=== PATIENT | female | born 1955 | race Caucasian/White ===

== ENCOUNTER → 2019-05-30 11:11 | Outpatient (BNVA) | payer MEDICARE, OTHER, SELFPAY | PROVIDERS: Family Provider Nurse Practitioner; PCP Nurse Practitioner; Visit Provider Nurse Practitioner | DX: E04.9 Nontoxic goiter, unspecified (principal); E55.9 Vitamin D deficiency, unspecified | CPT/HCPCS: 82306; 84443 ==

== ENCOUNTER → 2019-10-25 14:04 | Outpatient (BNVA) | payer MEDICARE, OTHER, SELFPAY | PROVIDERS: Family Provider Nurse Practitioner; PCP Nurse Practitioner; Visit Provider Nurse Practitioner | DX: Z12.31 Encounter for screening mammogram for malignant neoplasm of breast (principal); E03.8 Other specified hypothyroidism; I48.91 Unspecified atrial fibrillation | CPT/HCPCS: 80053; 80061; 84443 ==

== ENCOUNTER → 2019-10-26 10:51 | Outpatient (BNVA) | payer MEDICARE, OTHER, SELFPAY | PROVIDERS: Family Provider Nurse Practitioner; PCP Nurse Practitioner; Visit Provider Nurse Practitioner | DX: I48.91 Unspecified atrial fibrillation (principal); I70.90 Unspecified atherosclerosis | CPT/HCPCS: 71046 ==

== ENCOUNTER → 2019-11-02 15:10 | Outpatient (BNVA) | payer MEDICARE, OTHER, SELFPAY | PROVIDERS: Family Provider Nurse Practitioner; PCP Nurse Practitioner; Visit Provider Nurse Practitioner | DX: I48.91 Unspecified atrial fibrillation (principal); R73.9 Hyperglycemia, unspecified | CPT/HCPCS: 83036 ==

== ENCOUNTER 2019-11-28 09:23 | Outpatient (CLI) | payer MEDICARE, OTHER, SELFPAY ==
--- NOTE | 2019-11-28 09:30 | USCV_ITS ---
Graciela Hameed Age: 64 Gender: F : 1955 Exam Date: 11/28/2019 09:45 Ordering Phys: Nicol Taveras Technologist: Becky Espinoza [place]am [place] [facility] [place]: PALPATION BP: 100 / 82 HR: 93 Rhythm: Sinus Technical Quality: Adequate MEASUREMENTS (Male / Female) Normal Values 2D ECHO LV Diastolic Diameter PLAX 4.1 cm 4.2 - 5.9 / 3.9 - 5.3 cm LV Systolic Diameter PLAX 3.4 cm LV Chamber Size 3.0 cm IVS Diastolic Thickness 1.0 cm 0.6 - 1.0 / 0.6 - 0.9 cm IVS Systolic Thickness 1.5 cm LVPW Diastolic Thickness 1.4 cm 0.6 - 1.0 / 0.6 - 0.9 cm LVPW Systolic Thickness 1.8 cm RV Chamber Size 2.2 cm LVOT Diameter 2.0 cm LV Ejection Fraction 2D Teich 34.8 % LV Ejection Fraction MOD 2C 80.5 % LV Ejection Fraction 2C AL 82.1 % LA Diameter 4.0 cm LA Width 2.8 cm LA Height 4.8 cm RA Width 3.3 cm RA Height 3.4 cm Aorta at Sinotubular Diameter 3.1 cm M-MODE LV Diastolic Diameter MM 3.5 cm 4.2 - 5.9 / 3.9 - 5.3 cm LV Systolic Diameter MM 2.4 cm LV Ejection Fraction MM Teich 62.5 % IVS Diastolic Thickness MM 1.0 cm 0.6 - 1.0 / 0.6 - 0.9 cm IVS Systolic Thickness MM 1.4 cm LVPW Diastolic Thickness MM 1.3 cm 0.6 - 1.0 / 0.6 - 0.9 cm LVPW Systolic Thickness MM 1.8 cm RV Diastolic Diameter MM 1.5 cm Aortic Annulus Diameter 3.5 cm LA Ao Ratio MM 1.3 MV E Point Septal Separation 0.8 cm DOPPLER AV Peak Velocity 126.0 cm/s LVOT Peak Velocity 68.0 cm/s AV Area Cont Eq vti 2.4 cm squared AV Area Cont Eq pk 1.8 cm squared MV Area PHT 4.4 cm squared MV E' Velocity 80.5 cm/s Mitral E to MV E' Ratio 13.9 Mitral E to LV E' Lateral Ratio 13.9 Mitral E to LV E' Septal Ratio 13.9 TR Peak Velocity 121.8 cm/s TR Peak Gradient 5.9 mmHg TR Mean Velocity 74.0 cm/s TR Mean Gradient 2.7 mmHg TR Velocity Time Integral 27.4 cm TV Peak E Velocity 72.0 cm/s Right Atrial Pressure 3.0 mmHg Pulmonary Artery Systolic Pressu 8.9 mmHg PV Peak Velocity 59.3 cm/s RV Acceleration Time 0.3 s RV Ejection Time 0.3 s RV AcT/ET 0.9 FINDINGS Left Ventricle Normal left ventricular cavity size. Normal left ventricular systolic function. Left ventricular ejection fraction is estimated at 55 %. No regional wall motion abnormalities. In the presence of atrial fibrillation diastolic function cannot be assessed accurately. Right Ventricle The right ventricle is normal in size and function. Right Atrium The right atrium is normal in size. Left Atrium The left atrium is normal in size. Mitral Valve Structurally normal mitral valve without significant stenosis or prolapse. There is no mitral regurgitation. Aortic Valve Structurally normal aortic valve without significant sclerosis or stenosis. There is no aortic regurgitation. Tricuspid Valve Structurally normal tricuspid valve without significant stenosis or regurgitation. Pulmonary artery systolic pressure is normal. Pulmonic Valve Structurally normal pulmonic valve without significant stenosis. There is no pulmonic regurgitation. Pericardium Normal pericardium without effusion. Aorta Normal ascending aorta dimension. CONCLUSIONS 1-Normal left ventricular cavity size. Normal left ventricular systolic function. Left ventricular ejection fraction is estimated at 55 %. No regional wall motion abnormalities. In the presence of atrial fibrillation diastolic function cannot be assessed accurately. 2-There is no pericardial effusion. 3-No significant valve abnormalities. 4-Pulmonary artery systolic pressure is within normal limits. 5-Right atrial pressure is around 5 mm of mercury. 6-There are no prior echocardiogram studies to compare. Geneva Wayne MD (Electronically Signed) Final Date: 28 November 2019 21:12 S
== END 2019-11-28 09:24 | disposition home or self-care (01) ==
LOC: US 09:25
PROVIDERS: PCP Nurse Practitioner; Visit Provider Nurse Practitioner
DX: R00.2 Palpitations (principal)
CPT/HCPCS: 93306

== ENCOUNTER 2019-12-12 14:59 | Outpatient (CLI) | payer MEDICARE, OTHER, SELFPAY ==
--- NOTE | 2019-12-12 15:14 | MM_ITS ---
WS: [id number] BILATERAL SCREENING DIGITAL MAMMOGRAM WITH CAD HISTORY: hx right breast mass COMPARISON: 09/16/2018 and 08/25/2018 Bilateral CC and MLO views submitted. Computer aided detection analyzed. Breast composition: The breasts are heterogeneously dense, which may obscure small masses. No suspici ous masses, microcalcifications or architectural distortion. RIGHT breast nodules and LEFT breast keenan cifications are all stable. No progression of asymmetries. MM/[id number] IMPRESSION: BI-RADS: 2-Benign FOLLOW UP: 1 Year Follow-up
== END 2019-12-12 15:00 | disposition home or self-care (01) ==
LOC: RADSHAW 15:07
PROVIDERS: PCP Nurse Practitioner; Visit Provider Nurse Practitioner
DX: Z85.3 Personal history of malignant neoplasm of breast (principal)
CPT/HCPCS: 77066

== ENCOUNTER → 2020-01-01 15:33 | Outpatient (BNVA) | payer MEDICARE, OTHER, SELFPAY | PROVIDERS: PCP Nurse Practitioner; Visit Provider Internal Medicine Cardiovascular Disease | DX: I48.91 Unspecified atrial fibrillation (principal); E78.2 Mixed hyperlipidemia; E03.8 Other specified hypothyroidism; M19.90 Unspecified osteoarthritis, unspecified site; G47.10 Hypersomnia, unspecified | CPT/HCPCS: 80048; 80162; 83735; 85025 ==

== ENCOUNTER 2020-02-08 11:00 | Outpatient (CLI) | payer MEDICARE, SELFPAY | END 2020-02-08 11:01 | disposition home or self-care (01) | LOC: SLEEP 02-13 10:31 | PROVIDERS: PCP Nurse Practitioner; Visit Provider Internal Medicine Cardiovascular Disease | DX: G47.10 Hypersomnia, unspecified (principal) | CPT/HCPCS: 94762 ==

== ENCOUNTER → 2020-03-11 15:33 | Outpatient (BNVA) | payer MEDICARE, SELFPAY | PROVIDERS: PCP Nurse Practitioner; Visit Provider Nurse Practitioner | DX: E03.8 Other specified hypothyroidism (principal); E78.2 Mixed hyperlipidemia | CPT/HCPCS: 80053; 80061; 84443 ==

== ENCOUNTER → 2020-03-19 11:54 | Outpatient (BNVA) | payer MEDICARE, SELFPAY | PROVIDERS: PCP Nurse Practitioner; Visit Provider Nurse Practitioner | DX: R73.9 Hyperglycemia, unspecified (principal) | CPT/HCPCS: 83036 ==

== ENCOUNTER → 2020-06-24 15:05 | Outpatient (BNVA) | payer MEDICARE, SELFPAY | PROVIDERS: PCP Nurse Practitioner; Visit Provider Nurse Practitioner | DX: E11.65 Type 2 diabetes mellitus with hyperglycemia (principal); E78.2 Mixed hyperlipidemia; E03.8 Other specified hypothyroidism | CPT/HCPCS: 80053; 80061; 83036; 84443; 85025 ==

== ENCOUNTER → 2020-12-16 14:36 | Outpatient (BNVA) | payer MEDICARE, SELFPAY | PROVIDERS: PCP Nurse Practitioner; Visit Provider Nurse Practitioner | DX: E03.8 Other specified hypothyroidism (principal); E11.65 Type 2 diabetes mellitus with hyperglycemia; E78.2 Mixed hyperlipidemia; I48.91 Unspecified atrial fibrillation | CPT/HCPCS: 80053; 80061; 80162; 83036; 84443; 85025 ==

== ENCOUNTER 2021-01-30 11:24 | Outpatient (CLI) | payer MEDICARE, SELFPAY ==
--- NOTE | 2021-01-30 11:34 | MM_ITS ---
WS: [id number] BILATERAL DIGITAL SCREENING MAMMOGRAPHY WITH CAD CLINICAL INFORMATION: SCREENING HISTORY: Screening mammogram. No current complaints. COMPARISON: December 12, 2019 TECHNIQUE: Bilateral CC and MLO views. FINDINGS: The breasts are composed of heterogeneous fibroglandular density tissue, which can limit the detectio n of small underlying mass lesions. Dystrophic calcifications left breast. A few stable punctate calc ifications right breast. Ovoid nodules right breast are similar in appearance. No suspicious mass, as ymmetry, calcifications, or architectural distortion. No evidence of malignancy. MM/[id number] IMPRESSION: BI-RADS: 2-Benign FOLLOW UP: 1 Year Follow-up Recommend return to annual screening mammography.
== END 2021-01-30 11:25 | disposition home or self-care (01) ==
PROVIDERS: PCP Nurse Practitioner; Visit Provider Nurse Practitioner
DX: Z12.31 Encounter for screening mammogram for malignant neoplasm of breast (principal)
CPT/HCPCS: 77067

== ENCOUNTER → 2021-02-17 11:20 | Outpatient (BNVA) | payer MEDICARE, SELFPAY | PROVIDERS: PCP Nurse Practitioner; Visit Provider Nurse Practitioner | DX: M25.611 Stiffness of right shoulder, not elsewhere classified (principal) | CPT/HCPCS: 73030 ==

== ENCOUNTER → 2021-05-08 15:42 | Outpatient (BNVA) | payer MEDICARE, SELFPAY | PROVIDERS: PCP Nurse Practitioner; Visit Provider Nurse Practitioner Family | DX: R50.9 Fever, unspecified (principal); R05.9 Cough, unspecified; Z20.822 Contact with and (suspected) exposure to COVID-19 | CPT/HCPCS: 87635 ==

== ENCOUNTER → 2021-06-04 09:30 | Outpatient (BNVA) | payer MEDICARE, SELFPAY | PROVIDERS: PCP Nurse Practitioner; Visit Provider Nurse Practitioner | DX: E03.8 Other specified hypothyroidism (principal); E11.65 Type 2 diabetes mellitus with hyperglycemia | CPT/HCPCS: 80053; 80061; 82306; 83036; 84443 ==

== ENCOUNTER 2021-06-24 06:49 | Outpatient (CLI) | payer MEDICARE, SELFPAY ==
--- NOTE | 2021-06-24 08:30 | CT_ITS ---
WS: [id number] CT ABDOMEN PELVIS TECHNIQUE: Noncontrast CT of the abdomen and pelvis with coronal and sagittal reformatted images. CLINICAL INFORMATION: R10.9 - Unspecified abdominal pain COMPARISON: None. DLP: 1020.[address] scans at [facility] use at least one of these dose optimization techniques: automated e xposure control; mA and/or kV adjustment per patient size (includes targeted exams where dose is matc hed to clinical indication); or iterative reconstruction. FINDINGS: Mild hepatomegaly. Noncontrast liver otherwise appears normal. Noncontrast spleen is normal. Normal G E junction. Lung bases are well aerated. Adrenal glands are normal. Noncontrast pancreas appears norm al. Large calcified intraluminal gallstone measuring 2.9 cm with gallbladder wall thickening. Recomme nd further evaluation with ultrasound. No intrahepatic biliary ductal dilatation. Adrenal glands are normal. No hydronephrosis in either kidney. No obstructing renal or ureteral calcu li.Normal caliber abdominal aorta. Mild aortic calcification. Several calcified uterine fibroids. Sig moid diverticulosis. No evidence of acute diverticulitis. No high-grade small or large bowel obstruct ion. Normal appendix in the RIGHT lower quadrant. Normal caliber abdominal aorta. Mild aortic calcification. No abdominal or pelvic lymphadenopathy. No inguinal lymphadenopathy. Fat-containing umbilical hernia. S-shaped thoracolumbar scoliosis. Impression CT/CT abdomen pelvis wo con [id number] IMPRESSION: 1. Large calcified gallstone with gallbladder wall thickening. Recommend furth er evaluation with ultrasound. No intrahepatic biliary ductal dilatation. Recom mend clinical correlation for cholecystitis. 2. Mild hepatomegaly. 3. Sigmoid diverticulosis. No evidence of acute diverticulitis. 4. Lobulated uterus with multiple calcified uterine fibroids. 5. No abdominal or pelvic lymphadenopathy. 6. Fat-containing umbilical hernia. 7. Thoracolumbar scoliosis.
== END 2021-06-24 06:50 | disposition home or self-care (01) ==
LOC: RAD 06:51
PROVIDERS: Family Provider Nurse Practitioner; PCP Nurse Practitioner; Visit Provider Nurse Practitioner
DX: R10.9 Unspecified abdominal pain (principal); K80.80 Other cholelithiasis without obstruction; K57.30 Diverticulosis of large intestine without perforation or abscess without bleeding
CPT/HCPCS: 74176

== ENCOUNTER → 2021-07-01 13:41 | Outpatient (BNVA) | payer MEDICARE, SELFPAY | PROVIDERS: Family Provider Nurse Practitioner; PCP Nurse Practitioner; Referring Provider Nurse Practitioner; Visit Provider Surgery | DX: K80.20 Calculus of gallbladder without cholecystitis without obstruction (principal); R10.12 Left upper quadrant pain | CPT/HCPCS: 99204 ==

== ENCOUNTER → 2021-09-23 14:04 | Outpatient (BNVA) | payer MEDICARE, SELFPAY | PROVIDERS: Family Provider Nurse Practitioner; PCP Nurse Practitioner; Visit Provider Nurse Practitioner | DX: R05.9 Cough, unspecified (principal); J30.89 Other allergic rhinitis; M19.90 Unspecified osteoarthritis, unspecified site; J98.01 Acute bronchospasm; E03.8 Other specified hypothyroidism; E11.65 Type 2 diabetes mellitus with hyperglycemia; E78.2 Mixed hyperlipidemia; Z20.822 Contact with and (suspected) exposure to COVID-19; B00.9 Herpesviral infection, unspecified; A88.1 Epidemic vertigo | CPT/HCPCS: 80053; 85025; 87400; 87635 ==

== ENCOUNTER → 2021-10-01 14:33 | Outpatient (BNVA) | payer MEDICARE, SELFPAY | PROVIDERS: Family Provider Nurse Practitioner; PCP Nurse Practitioner; Visit Provider Internal Medicine Cardiovascular Disease | DX: I48.91 Unspecified atrial fibrillation (principal); Z79.01 Long term (current) use of anticoagulants; E03.8 Other specified hypothyroidism | CPT/HCPCS: 99214 ==

== ENCOUNTER → 2021-11-26 11:31 | Outpatient (BNVA) | payer MEDICARE, SELFPAY | PROVIDERS: Family Provider Nurse Practitioner; PCP Nurse Practitioner; Visit Provider Nurse Practitioner | DX: E11.65 Type 2 diabetes mellitus with hyperglycemia (principal); E03.8 Other specified hypothyroidism; E78.2 Mixed hyperlipidemia | CPT/HCPCS: 80053; 80061; 82306; 84443 ==

== ENCOUNTER 2022-01-06 14:32 | Outpatient (CLI) | payer MEDICARE, SELFPAY ==
--- NOTE | 2022-01-06 15:30 | XR_ITS ---
WS: [id number] DEXA (DUAL ENERGY X-RAY ABSORPTIOMETRY) Bone mineral density was performed using a Kymeta machine. HISTORY: Z78.0 - Asymptomatic menopausal state COMPARISON: None available. Lumbar spine BMD (L1-L4): 1.098 g/cm2 T score: -0.7 Z score: 0.6 Total hip BMD: Left: 0.839 g/cm2. T score: -1.3 Z score: -0.3 Right: 0.872 g/cm2. T score: -1.1 Z score: -0.1 10 year probability of a major osteoporotic fracture is 9.2%. Moderate RIGHT rotoscoliosis of the lumbar spine. XR/XR DEXA axial skeleton* [id number] IMPRESSION: OSTEOPENIA based upon the WHO classification for females.
== END 2022-01-06 14:33 | disposition home or self-care (01) ==
LOC: RAD 14:33
PROVIDERS: PCP Nurse Practitioner; Visit Provider Nurse Practitioner
DX: Z78.0 Asymptomatic menopausal state (principal); M85.80 Other specified disorders of bone density and structure, unspecified site
CPT/HCPCS: 77080

== ENCOUNTER → 2022-02-03 10:02 | Outpatient (BNVA) | payer MEDICARE, SELFPAY | PROVIDERS: PCP Nurse Practitioner; Visit Provider Nurse Practitioner Family | DX: R50.9 Fever, unspecified (principal); R09.89 Other specified symptoms and signs involving the circulatory and respiratory systems | CPT/HCPCS: 87400 ==

== ENCOUNTER → 2022-02-16 10:33 | Outpatient (BNVA) | payer MEDICARE, SELFPAY | PROVIDERS: PCP Nurse Practitioner; Visit Provider Nurse Practitioner | DX: E78.2 Mixed hyperlipidemia (principal); E03.8 Other specified hypothyroidism; E11.65 Type 2 diabetes mellitus with hyperglycemia | CPT/HCPCS: 80053; 80061; 83036; 84443 ==

== ENCOUNTER → 2022-05-08 10:30 | Outpatient (BNVA) | payer MEDICARE, SELFPAY | PROVIDERS: PCP Nurse Practitioner; Visit Provider Nurse Practitioner | DX: E11.65 Type 2 diabetes mellitus with hyperglycemia (principal); E78.2 Mixed hyperlipidemia | CPT/HCPCS: 80053; 80061; 83036; 84443 ==

== ENCOUNTER → 2022-05-29 10:50 | Outpatient (BNVA) | payer MEDICARE, SELFPAY | PROVIDERS: Family Provider Nurse Practitioner; PCP Nurse Practitioner; Visit Provider Nurse Practitioner Family | DX: I48.91 Unspecified atrial fibrillation (principal); Z79.01 Long term (current) use of anticoagulants | CPT/HCPCS: 99213 ==

== ENCOUNTER → 2022-07-30 10:46 | Outpatient (BNVA) | payer MEDICARE, SELFPAY | PROVIDERS: Family Provider Nurse Practitioner; PCP Nurse Practitioner; Visit Provider Nurse Practitioner | DX: E78.2 Mixed hyperlipidemia (principal); E11.65 Type 2 diabetes mellitus with hyperglycemia | CPT/HCPCS: 80053; 80061; 83036; 84443 ==

== ENCOUNTER → 2022-08-04 14:40 | Outpatient (BNVA) | payer MEDICARE, SELFPAY | PROVIDERS: Family Provider Nurse Practitioner; PCP Nurse Practitioner; Visit Provider Nurse Practitioner | DX: J30.89 Other allergic rhinitis (principal); G47.00 Insomnia, unspecified; J98.01 Acute bronchospasm; M81.0 Age-related osteoporosis without current pathological fracture; E03.8 Other specified hypothyroidism; E11.65 Type 2 diabetes mellitus with hyperglycemia; E78.2 Mixed hyperlipidemia; R60.9 Edema, unspecified | CPT/HCPCS: 81000; 82043 ==

== ENCOUNTER 2022-08-14 10:44 | Outpatient (CLI) | payer MEDICARE, SELFPAY ==
--- NOTE | 2022-08-14 10:51 | MM_ITS ---
WS: [id number] BILATERAL 3D TOMOSYNTHESIS DIGITAL SCREENING MAMMOGRAPHY WITH CAD CLINICAL INFORMATION: Z12.31 - Encounter for screening mammogram for malignant ... HISTORY: Screening mammogram. No current complaints. COMPARISON: 2020 TECHNIQUE: Bilateral CC and MLO views. FINDINGS: The breasts are composed of heterogeneous fibroglandular density tissue, which can limit the detectio n of small underlying mass lesions. No suspicious mass, asymmetry, calcifications, or architectural d istortion. No evidence of malignancy. Punctate and lucent centered calcifications. Dystrophic calcifi cations LEFT breast. Stable ovoid nodules RIGHT breast. MM/[place] [id number] IMPRESSION: BI-RADS: 2-Benign FOLLOW UP: 1 Year Follow-up Recommend return to annual screening mammography.
== END 2022-08-14 10:45 | disposition home or self-care (01) ==
PROVIDERS: Family Provider Nurse Practitioner; PCP Nurse Practitioner; Visit Provider Nurse Practitioner
DX: Z12.31 Encounter for screening mammogram for malignant neoplasm of breast (principal)
CPT/HCPCS: 77063; 77067

== ENCOUNTER 2022-08-18 16:27 | Emergency (ER) | payer MEDICARE, SELFPAY ==
[2022-08-18 16:37] VITALS: BP 115/58; PULSE 84; RESP 16; TEMP 36.7; O2SAT 97
--- NOTE | 2022-08-18 17:31 | W.ED.FEMALGU ---
HPI - Female Genitourinary General: Chief complaint: Urogenital-Female Stated complaint: Peeing Blood Time Seen by Provider: 08/18/22 17:30 History of Present Illness: 66-year-old female comes in today with complaints of blood in urine. Patient denies any increased pain or discomfort. Patient seen her primary care last week for normal checkup and had urine checked at that time but no abnormalities was reported to her. Patient denies fever or severe pain. Patient has a history of A-fib, and borderline diabetes mellitus. Associated symptoms: Deny headache(s) or nausea Review of Systems Const: Denies: fever(s) Card: Denies: chest pain Resp: Denies: dyspnea GI: Denies: nausea or vomiting : Reports: hematuria Musc: Denies: neck pain or back pain Skin/Breast: Denies: rash or pruritus Neuro: Denies: headache(s) PFSH ED PFSH: Medical History Acute non-seasonal allergic rhinitis Adult onset hypothyroidism Diverticulosis Osteoarthritis Surgical History History of colonoscopy 2019 History of tonsillectomy History of tubal ligation Family History Other CAD (coronary artery disease) COPD (chronic obstructive pulmonary disease) Diabetes Heart disease Denies family history of Bleeding disorder Social History Smoking and tobacco status: never smoked Second hand smoke exposure: No Smoking risk assessment/counseling performed?: No Alcohol intake: never Desire information about alcohol rehabilitation?: No Counseling given: No Substance/Drug Use: never Desire information about substance/drug rehabilitation?: No Counseling given: No Adopted: No Caregiver/support person: No Lives independently: Yes Household members: spouse Housing: House Marital status: service: No Current occupational status: disabled Do you think of yourself as: Straight/Heterosexual Current gender identity: Female Physical Exam Const: COMMON NORMALS: alert HENMT: COMMON NORMALS: atraumatic HEAD & SCALP: atraumatic Neck/C-Spine: COMMON NORMALS: full ROM Resp: COMMON NORMALS: normal respiratory effort and clear to auscultation bilaterally AUSCULTATION: clear to auscultation bilaterally Cardio: COMMON NORMALS: regular rate and regular rhythm RATE: regular rate RHYTHM: regular rhythm GI: COMMON NORMALS: Soft to palpation and non-tender PALPATION: Yes Soft to palpation : COMMON NORMALS: Yes no CVA tenderness BLADDER/KIDNEY EXAM: Yes no CVA tenderness Back/Pelvis: COMMON NORMALS: no CVA tenderness Extremity: COMMON NORMALS: full ROM Neuro: SENSORIUM/ORIENTATION: Yes alert Skin: COMMON NORMALS: turgor normal GENERAL SKIN EXAM: turgor normal Course Vital Signs: Vital signs: Vital Signs Temperature 98.1 F 08/18/22 16:37 Pulse Rate 77 08/18/22 18:22 Respiratory Rate 16 08/18/22 18:22 Blood Pressure 106/69 08/18/22 18:22 Pulse Oximetry 98 08/18/22 18:22 Oxygen Delivery Me thod Room Air 08/18/22 18:22 [facility] - Female Medical Decision Making 66-year-old female comes in today for complaints of blood in urine. Patient denies any pain or discomfort or fever. On exam abdomen soft nontender. Bowel sounds are present. No CVA tenderness is noted. Differential diagnosis includes renal calculi, urinary tract infection, adverse drug effect. Laboratory noted no significant anemia in the blood count, kidney function was well, urinalysis had a large amount of blood cells. CT of the abdomen and pelvis noted cholelithiasis, diverticulosis, uterine fibroids, constipation, breast nodule, and pericardial calcification. Reviewed incidental findings with patient with recommendations for follow-up. Discussed need for follow-up with urology due to hematuria. Suspect a cystitis causing the hematuria, we will start her on antibiotic 300 mg twice a day for the next 7 days with need for follow-up or return to the ER for worsening symptoms. Patient reported understanding and agreed to plan. Lab Data 08/18/22 17:40 08/18/22 17:40 Radiology Impressions Abdomen/Pelvis CT 08/18/22 17:32 IMPRESSION: 1. Cholelithiasis with possible minimal pericholecystic edema, consider further evaluation with an ultrasound. 2. Constipation. 3. Diverticulosis without diverticulitis. 4. Several calcified uterine fibroids suspected measuring up to 13 mm. 5. Somewhat diffuse pericardial calcification. 6. Several right inferior breast soft tissue density nodules suspected measuring up to 11 mm, dedicated nonemergent breast imaging advised. Laboratory Results WBC 11.6 10^3/uL (4.0-10.0) H 08/18/22 17:40 RBC 4.50 10^6/uL (4.1-5.3) 08/18/22 17:40 Hgb 13.8 g/dL (11.5-15.3) 08/18/22 17:40 Hct 41.8 % (37.0-47.0) 08/18/22 17:40 MCV 92.9 fl (81-99) 08/18/22 17:40 MCH 30.7 pg (28.0-34.0) 08/18/22 17:40 MCHC 33.0 g/dL (30.0-36.0) 08/18/22 17:40 RDW 11.9 % (12.1-15.1) L 08/18/22 17:40 Plt Count 217 10^3/cmm (130-400) 08/18/22 17:40 MPV 10.8 fL (7.4-10.4) H 08/18/22 17:40 Neut % (Auto) 61.7 % 08/18/22 17:40 Lymph % (Auto) 28.4 % 08/18/22 17:40 [place] % (Auto) 7.4 % 08/18/22 17:40 Eos % (Auto) 1.8 % 08/18/22 17:40 Baso % (Auto) 0.3 % 08/18/22 17:40 Neut # (Auto) 7.17 10^3/uL (1.8-7.7) 08/18/22 17:40 Lymph # (Auto) 3.3 10^3/uL (0.8-4.8) 08/18/22 17:40 [place] # (Auto) 0.9 10^3/uL (0.2-0.9) 08/18/22 17:40 Eos # (Auto) 0.2 10^3/uL (0.0-0.8) 08/18/22 17:40 Baso # (Auto) 0.0 10^3/uL (0.0-0.1) 08/18/22 17:40 Nucleated RBC % (auto) 0 % 08/18/22 17:40 Nucleated RBCs # 0.0 /100WBC 08/18/22 17:40 Sodium 138 mmol/L (136-145) 08/18/22 17:40 Potassium 3.9 mmol/L (3.5-5.1) 08/18/22 17:40 Chloride 98 mmol/L (98-107) 08/18/22 17:40 Carbon Dioxide 29 mmol/L (22-29) 08/18/22 17:40 Anion Gap 14.9 (5-19) 08/18/22 17:40 BUN 15 mg/dL (8-23) 08/18/22 17:40 Creatinine 0.8 mg/dL (0.5-0.9) 08/18/22 17:40 GFR Calculation 72.0 mL/min (90-130) L 08/18/22 17:40 Glucose 70 mg/dL (65-115) 08/18/22 17:40 Calculated Osmolality 285 mOsm/kg (285-295) 08/18/22 17:40 Calcium 9.6 mg/dL (8.5-10.5) 08/18/22 17:40 Total Bilirubin 0.6 mg/dL (0.15-1.2) 08/18/22 17:40 AST 20 U/L (0-32) 08/18/22 17:40 ALT 17 U/L (0-33) 08/18/22 17:40 Alkaline Phosphatase 57 U/L (35-105) 08/18/22 17:40 Total Protein 8.2 g/dL (6.6-8.7) 08/18/22 17:40 Albumin 4.7 g/dL (3.5-5.2) 08/18/22 17:40 Globulin 3.5 g/dL (1.3-4.6) 08/18/22 17:40 Urine Color Red (Yellow) 08/18/22 17:25 Urine Appearance Turbid (CLEAR) A 08/18/22 17:25 Urine pH 8 (5-7) H 08/18/22 17:25 Ur Specific [place] 1.015 (1.005-1.030) 08/18/22 17:25 Urine Protein 1+ (Negative) H 08/18/22 17:25 Urine Glucose (UA) Norm (Normal) 08/18/22 17:25 Urine Ketones Negative (Negative) 08/18/22 17:25 Urine Blood 3+ (Negative) H 08/18/22 17:25 Urine Nitrate Negative (Negative) 08/18/22 17:25 Urine Bilirubin Neg (Negative) 08/18/22 17:25 Prot Sulfosalicylic Acd Positive (Negative) 08/18/22 17:25 Urine Urobilinogen Norm mg/dL (Negative) 08/18/22 17:25 Ur Leukocyte Esterase Negative (Negative) 08/18/22 17:25 Urine RBC >100 /hpf (0-2) H 08/18/22 17:25 Urine WBC 0-4 /hpf (0-5) H 08/18/22 17:25 Ur Squamous Epith Cells 0-4 /hpf (0-5) H 08/18/22 17:25 Amorphous Sediment Not Reportable 08/18/22 17:25 Urine Bacteria None /hpf (NONE) 08/18/22 17:25 Discharge Plan Discharge Patient Disposition: Home Clinical Impression: Cystitis Condition: Stable Prescriptions: New cefdinir 300 mg capsule 300 mg PO BID 7 Days Qty: 13 0RF No Action multivitamin Tablet 1 tab PO DAILY vitamin B complex [Super B-50 Complex] Capsule 1 cap PO DAILY ascorbic acid-elderberry fruit PO lysine 500 mg tablet 500 mg PO DAILY albuterol sulfate [ProAir HFA] 90 mcg/actuation HFA aerosol inhaler 2 puff inhalation QID PRN (Reason: shortness of breath or wheezing) Qty: 25.5 0RF cetirizine 5 mg/5 mL solution 10 mg PO DAILY Qty: 900 0RF trazodone 100 mg tablet 100 mg PO .at bedtime Qty: 90 1RF ibandronate [Boniva] 150 mg tablet 150 mg PO .monthly Qty: 3 0RF levothyroxine 50 mcg tablet 50 mcg PO DAILY Qty: 90 0RF metformin 500 mg tablet extended release 24 hr 500 mg PO BID Qty: 180 0RF rosuvastatin [Crestor] 5 mg tablet 5 mg PO DAILY Qty: 90 0RF Hold Instructions: muscle aches triamterene-hydrochlorothiazid 37.5-25 mg tablet 1 tab PO DAILY Qty: 90 0RF promethazine-DM 6.25-15 mg/5 mL syrup 5 ml PO .every 12 hours Qty: 120 0RF digoxin 125 mcg (0.125 mg) tablet See Rx Instructions .ROUTE .COMPLEX Qty: 90 3RF Dose Instruction: TAKE 2 TABLETS BY MOUTH TWICE DAILY ON DAY 1 THEN 1 TABLET BY MOUTH DAILY Rx Instructions: 1 tablet daily metoprolol tartrate 25 mg tablet 25 mg PO BID Qty: 180 3RF Eliquis 5 mg tablet 5 mg PO BID Qty: 60 11RF Rx Instructions: fill under 340B Discharge Orders: Discharge ED (Routine); Ordered 08/18/22 Ordered By: Nj Singh Referrals: Nicol Taveras, KULDEEP [Primary Care Provider] - Discharge Diet: Usual diet Discharge Activity: Increase activity as tolerated Patient Instructions: Hematuria (ED) Activity Restrictions/Additional Instructions: Take antibiotic as directed. Drink plenty of water and fluids. Follow-up with primary care in 1 week for recheck of urine. Case management will contact you about follow-up appointment with urologist for further evaluation of hematuria. Return to ER for new concerns or worsening symptoms such as high fever, inability to hold fluids down, feelings of lightheadedness or dizziness. Coding Level of Care Code ED Reject Opener And Filler for Mauricio Buitrago
--- NOTE | 2022-08-18 17:32 | CTR_ITS ---
PROCEDURE INFORMATION: Exam: CT Abdomen And Pelvis Without Contrast Exam date and time: 08/18/2022 6:27 PM Age: 66 years old Clinical indication: Other: Hematuria TECHNIQUE: Imaging protocol: Computed tomography of the abdomen and pelvis without contrast. Radiation optimization: All CT scans at this facility use at least one of these dose optimization techniques: automated exposure control; mA and/or kV adjustment per patient size (includes targeted exams where dose is matched to clinical indication); or iterative reconstruction. REPORTING DATA: Count of CT and Cardiac NM exams in prior 12 months: This patient has received 0 known CTs and 0 known cardiac nuclear medicine studies in the 12 months prior to the current study. COMPARISON: CT abdomen pelvis wo con [id number] 06/24/2021 8:35 AM RADIATION DOSE METRICS: Total DLP (mGy-cm): 557.84 FINDINGS: Heart: Somewhat diffuse pericardial calcification. Liver: Normal. No mass. Gallbladder and bile ducts: Cholelithiasis with possible minimal pericholecystic edema, consider further evaluation with an ultrasound. Pancreas: Normal. No ductal dilation. Spleen: Normal. No splenomegaly. Adrenal glands: Normal. No mass. Kidneys and ureters: Normal. No hydronephrosis. Stomach and bowel: Constipation. Diverticulosis without diverticulitis. Appendix: No evidence of appendicitis. Intraperitoneal space: Unremarkable. No free air. No significant fluid collection. Vasculature: Unremarkable. No abdominal aortic aneurysm. Lymph nodes: Unremarkable. No enlarged lymph nodes. Urinary bladder: Unremarkable as visualized. Reproductive: Several calcified uterine fibroids suspected measuring up to 13 mm. Bones/joints: Unremarkable. No acute fracture. Soft tissues: Several right inferior breast soft tissue density nodules suspected measuring up to 11 mm, dedicated nonemergent breast imaging advised. CT/CT kidney stone [id number] IMPRESSION: 1. Cholelithiasis with possible minimal pericholecystic edema, consider further evaluation with an ultrasound. 2. Constipation. 3. Diverticulosis without diverticulitis. 4. Several calcified uterine fibroids suspected measuring up to 13 mm. 5. Somewhat diffuse pericardial calcification. 6. Several right inferior breast soft tissue density nodules suspected measuring up to 11 mm, dedicated nonemergent breast imaging advised.
[2022-08-18 17:54] LABS: Basophils % 0.3 %; Eosinophils # 0.2 10^3/uL (0.0-0.8); Eosinophils % 1.8 %; Hematocrit 41.8 % (37.0-47.0); Hemoglobin 13.8 g/dL (11.5-15.3); Lymphocytes # 3.3 10^3/uL (0.8-4.8); Lymphocytes % 28.4 %; Mean Corpuscular Hemoglobin 30.7 pg (28.0-34.0); Mean Corpuscular Volume 92.9 fl (81-99); Mean Platelet Volume 10.8 fL (7.4-10.4); Monocytes # 0.9 10^3/uL (0.2-0.9); Monocytes % 7.4 %; Neutrophils # 7.17 10^3/uL (1.8-7.7); Neutrophils % 61.7 %; Nucleated Red Blood Cells % 0 %; Platelet Count 217 10^3/cmm (130-400); Red Cell Distribution Width 11.9 % (12.1-15.1); White Blood Count 11.6 10^3/uL (4.0-10.0)
[2022-08-18 18:22] VITALS: BP 106/69; PULSE 77; RESP 16; O2SAT 98
[2022-08-18 18:22] LABS: Urine Appearance Turbid (CLEAR); Urine Color Red (Yellow)
[2022-08-18 18:23] LABS: Add Urine Microscopic? YES; Bilirubin Urine Neg (Negative); Blood Urine 3+ (Negative); Glucose Urine UA Norm (Normal); Ketones Urine Negative (Negative); Leukocyte Esterase Urine Negative (Negative); Nitrate Urine Negative (Negative); Protein Urine 1+ (Negative); Specific Gravity, Urine 1.015 (1.005-1.030); Sulfosalicylic Acid Urine Positive (Negative); Urobilinogen Urine Norm (Negative); pH Urine 8 (5-7)
[2022-08-18 18:25] LABS: Add Urine Culture? Yes; RBC Urine >100 /hpf (0-2); Squamous Epithelial Cell Urine 0-4 /hpf (0-5); WBC Urine 0-4 /hpf (0-5)
[2022-08-18 18:28] LABS: Alanine Aminotransferase 17 U/L (0-33); Albumin Level 4.7 g/dL (3.5-5.2); Alkaline Phosphatase 57 U/L (35-105); Anion Gap 14.9 (5-19); Aspartate Amino Transferase 20 U/L (0-32); Blood Urea Nitrogen 15 mg/dL (8-23); Calcium 9.6 mg/dL (8.5-10.5); Carbon Dioxide 29 mmol/L (22-29); Chloride 98 mmol/L (98-107); Globulin 3.5 g/dL (1.3-4.6); Glucose 70 mg/dL (65-115); Osmolality Calculated 285 mOsm/kg (285-295); Potassium 3.9 mmol/L (3.5-5.1); Sodium 138 mmol/L (136-145); Total Bilirubin 0.6 mg/dL (0.15-1.2); Total Protein 8.2 g/dL (6.6-8.7)
[2022-08-18] MEDS: cefdinir 300 MG CAPSULE PO (19:18)
--- NOTE | 2022-09-07 15:18 | DCPLANNER ---
Patients information had been faxed to [facility] for follow up - clinic did confirm that they received patients information.
== END 2022-08-18 19:20 | disposition home or self-care (01) ==
PROVIDERS: Emergency Provider Nurse Practitioner Family; PCP Nurse Practitioner
DX: N30.90 Cystitis, unspecified without hematuria (principal); Z79.01 Long term (current) use of anticoagulants; Z79.84 Long term (current) use of oral hypoglycemic drugs; K80.20 Calculus of gallbladder without cholecystitis without obstruction
CPT/HCPCS: 36415; 74176; 80053; 81001; 85025; 87077; 87086; 87186; 99284

== ENCOUNTER → 2022-08-31 14:36 | Outpatient (BNVA) | payer MEDICARE, SELFPAY | PROVIDERS: PCP Nurse Practitioner; Visit Provider Nurse Practitioner | DX: E11.65 Type 2 diabetes mellitus with hyperglycemia (principal) | CPT/HCPCS: 81000 ==

== ENCOUNTER → 2022-10-15 11:11 | Outpatient (BNVA) | payer MEDICARE, SELFPAY | PROVIDERS: PCP Nurse Practitioner; Visit Provider Nurse Practitioner | DX: E03.8 Other specified hypothyroidism (principal); E11.65 Type 2 diabetes mellitus with hyperglycemia; E78.2 Mixed hyperlipidemia | CPT/HCPCS: 80053; 80061; 83036; 84443; 85025 ==

== ENCOUNTER → 2022-12-14 10:19 | Outpatient (BNVA) | payer MEDICARE, SELFPAY | PROVIDERS: PCP Nurse Practitioner; Visit Provider Nurse Practitioner | DX: E03.8 Other specified hypothyroidism (principal); E11.65 Type 2 diabetes mellitus with hyperglycemia; E78.2 Mixed hyperlipidemia; M81.0 Age-related osteoporosis without current pathological fracture | CPT/HCPCS: 80053; 80061; 82306; 83036; 84443 ==